=== PATIENT | male | born 2000 | race Hispanic/Latino ===

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

== ENCOUNTER 2022-10-12 09:37 | Emergency (ER) | payer MEDICAID ==
[~2022-10-12] VITALS: Ht 165.1 cm; Wt 56.7 kg
[2022-10-12] MEDS ORDERED: NAPR-1180 PO (11:28)
[2022-10-12 12:11] VITALS: BP 132/68
== END 2022-10-12 12:12 | disposition home or self-care (01) ==
LOC: EDH 09:37
DX: S39.012A Strain of muscle, fascia and tendon of lower back, initial encounter (principal); X58.XXXA Exposure to other specified factors, initial encounter; Y93.89 Activity, other specified; Y92.89 Other specified places as the place of occurrence of the external cause; Y99.8 Other external cause status
CPT/HCPCS: 99282

== ENCOUNTER 2023-01-26 20:09 | Emergency (ER) | payer MEDICAID ==
[~2023-01-26] VITALS: Ht 165.1 cm; Wt 55.3 kg
[~2023-01-26 20:09] MED LIST: FLUC150T PO; LEVO750T68 PO; NAPR-1180 PO
[2023-01-27 03:06] LABS: BASOPHILS # (AUTO) 0.05 K/uL (0.00-0.20); BASOPHILS % (AUTO) 0.8 % (0.0-5.0); EOSINOPHILS # (AUTO) 0.11 K/uL (0.00-0.70); EOSINOPHILS % (AUTO) 1.8 % (0.0-8.0); HEMATOCRIT 46.9 % (42-54); IMMATURE GRANULOCYTE ABSOLUTE 0.04 K/uL (0-1); LYMPHOCYTES # (AUTO) 2.1 K/uL (1.0-4.8); LYMPHOCYTES % (AUTO) 35.1 % (21.0-51.0); MEAN CORPUSCULAR HEMOGLOBIN 28.6 pg (27.0-33.0); MEAN CORPUSCULAR HGB CONC 33.7 g/dL (32.0-36.0); MONOCYTES # (AUTO) 0.5 K/uL (0.1-1.0); MONOCYTES % (AUTO) 8.2 % (3.0-13.0); NEUTROPHILS # (AUTO) 3.2 K/uL (1.8-7.7); NEUTROPHILS % (AUTO) 53.4 % (40.0-77.0); PLATELET COUNT (AUTO) 298 K/uL (130-400); RED BLOOD CELL COUNT(AUTO) 5.52 MIL/uL (4.50-6.20); RED CELL DISTRIBUTION WIDTH 12.6 % (11.0-15.5)
[2023-01-27 03:18] LABS: APPEARANCE,URINE CLEAR (CLEAR); BILIRUBIN,URINE NEGATIVE (NEGATIVE); COLOR,URINE YELLOW (YELLOW); GLUCOSE, URINE (UA) NEGATIVE (NEGATIVE); KETONES,URINE 40 mg/dL (NEGATIVE); LEUKOCYTE ESTERASE ,URINE NEGATIVE Leu/uL (NEGATIVE); NITRATE,URINE NEGATIVE (NEGATIVE); OCCULT BLOOD,URINE NEGATIVE (NEGATIVE); PROTEIN,URINE 20 mg/dL (NEGATIVE); UROBILINOGEN,URINE 0.2 mg/dL (0.2-1.0)
[2023-01-27 03:21] LABS: ALBUMIN 4.4 g/dL (3.5-5.0); BILIRUBIN,TOTAL 0.7 mg/dL (0.2-1.0); CREATININE 0.9 mg/dL (0.5-1.5); TOTAL PROTEIN, SERUM 7.9 g/dL (6.0-8.3)
[2023-01-27 03:21] LABS: ADD UA MICROSCOPIC YES; MUCUS,URINE FEW LPF (None Seen); WBC,URINE 0-1 /HPF (0-1)
[2023-01-27 03:24] LABS: AMPHET/METH SCREEN,URINE NEGATIVE (NEGATIVE); BARBITURATE SCREEN, URINE NEGATIVE (NEGATIVE); BENZODIAZEPINES SCREEN,URINE NEGATIVE (NEGATIVE); CANNABINOID SCREEN,URINE POSITIVE (NEGATIVE); COCAINE SCREEN,URINE NEGATIVE (NEGATIVE); OPIATE SCREEN,URINE NEGATIVE (NEGATIVE); PHENCYCLIDINE SCREEN,URINE NEGATIVE (NEGATIVE)
[2023-01-27] MEDS ORDERED: DICYCLOMINE HCL 10 MG/5 ML ML PO ONE (03:30)
[2023-01-27] MEDS ORDERED: LIDOCAINE HCL 2% VISCOUS 15 ML UDCUP PO ONE (03:30)
[2023-01-27] MEDS ORDERED: MAG/ALUM/SIMETH 30 ML UDCUP PO ONE (03:30)
[2023-01-27 06:14] VITALS: BP 116/70; PULSE 72; RESP 18; O2SAT 99
== END 2023-01-27 06:15 | disposition home or self-care (01) ==
LOC: EDH 20:09
DX: K29.70 Gastritis, unspecified, without bleeding (principal); R11.2 Nausea with vomiting, unspecified; F12.10 Cannabis abuse, uncomplicated; J45.909 Unspecified asthma, uncomplicated; Z79.899 Other long term (current) drug therapy
CPT/HCPCS: 36415; 80053; 80305; 81001; 83690; 85025

== ENCOUNTER 2023-03-10 14:17 | Emergency (ER) | payer MEDICAID ==
[~2023-03-10] VITALS: Ht 165.1 cm; Wt 58.1 kg
[2023-03-10 15:44] LABS: RAPID GROUP A STREP negative (NEGATIVE)
[2023-03-10 15:56] LABS: INFLUENZA TYPE A Negative For Type A (NEGATIVE); INFLUENZA TYPE B Negative For Type B (NEGATIVE); SARS-CoV-2, RNA, NAAT NEGATIVE SARS CoV-2 (NEGATIVE)
[2023-03-10] MEDS ORDERED: IBUP-2070 PO (16:27)
[2023-03-10] MEDS ORDERED: PRED20TA3 PO (16:27)
[2023-03-10] MEDS ORDERED: PREDNISONE 20 MG TABLET PO ONE (16:30)
[2023-03-10 16:41] VITALS: BP 131/68; PULSE 78; RESP 16; O2SAT 100
== END 2023-03-10 16:52 | disposition home or self-care (01) ==
LOC: EDH 14:17
DX: J06.9 Acute upper respiratory infection, unspecified (principal); J45.909 Unspecified asthma, uncomplicated; Z20.822 Contact with and (suspected) exposure to COVID-19
CPT/HCPCS: 99283; 87635; 87880; 87804 ×2; C9803

== ENCOUNTER 2023-04-02 17:24 | Emergency (ER) | payer MEDICAID ==
[~2023-04-02] VITALS: Ht 165.1 cm; Wt 59.0 kg
[~2023-04-02 17:24] MED LIST changes: +IBUP-2070 PO; +PRED20TA3 PO
[2023-04-02 18:30] LABS: RAPID GROUP A STREP negative (NEGATIVE)
[2023-04-02 18:34] LABS: INFLUENZA TYPE A Negative For Type A (NEGATIVE); INFLUENZA TYPE B Negative For Type B (NEGATIVE)
[2023-04-02 18:47] LABS: SARS-CoV-2, RNA, NAAT NEGATIVE SARS CoV-2 (NEGATIVE)
[2023-04-02 18:51] VITALS: BP 116/80; PULSE 99; RESP 18; O2SAT 99
[2023-04-02] MEDS ORDERED: BROM118S48 PO (19:26)
[2023-04-02] MEDS ORDERED: BENZ200C53 PO (19:26)
== END 2023-04-02 19:45 | disposition home or self-care (01) ==
LOC: EDH 17:24
DX: J00 Acute nasopharyngitis [common cold] (principal); Z79.52 Long term (current) use of systemic steroids; Z20.822 Contact with and (suspected) exposure to COVID-19
CPT/HCPCS: 99283; 87635; 87880; 87804 ×2; C9803

== ENCOUNTER 2024-05-13 12:46 | Emergency (ER) | payer SELFPAY ==
[~2024-05-13] VITALS: Ht 165.1 cm; Wt 61.2 kg
[~2024-05-13 12:46] MED LIST changes: +BENZ200C53 PO; +BROM118S48 PO
[2024-05-13 13:26] LABS: APPEARANCE,URINE CLOUDY (CLEAR); BILIRUBIN,URINE NEGATIVE (NEGATIVE); COLOR,URINE LIGHT-YELLOW (YELLOW); GLUCOSE, URINE (UA) NEGATIVE (NEGATIVE); KETONES,URINE NEGATIVE (NEGATIVE); LEUKOCYTE ESTERASE ,URINE 500 Leu/uL (NEGATIVE); NITRATE,URINE NEGATIVE (NEGATIVE); OCCULT BLOOD,URINE SMALL (NEGATIVE); PH,URINE 6.5 (5.0-8.0); PROTEIN,URINE NEGATIVE (NEGATIVE); UROBILINOGEN,URINE 0.2 mg/dL (0.2-1.0)
[2024-05-13] MEDS ORDERED: cefTRIAXone 1G VIAL IM ONE (13:30)
[2024-05-13 13:34] LABS: ADD UA MICROSCOPIC YES
[2024-05-13] MEDS ORDERED: DOXY100C61 PO (13:39)
--- NOTE | 2024-05-13 13:42 | ERN ---
General Chief Complaint: Painful Urination Stated Complaint: CHECK UP Time Seen by MD: 12:50 Time Seen by Midlevel: 12:50 Source: patient History of Present Illness Initial Comments Patient is a 23-year-old male presenting to the emergency department for evaluation following a possible exposure to STD. Patient reports being sexually active. For the last two days he developed dysuria along with penile discharge. He does have a history of chlamydia/gonorrhea and is concerned that the infection may have "come back". Denies any other symptoms at this time. He specifically denies any fever, chills, nausea, vomiting, testicular pain/swelling, or any other symptoms at this time. Allergies: Coded Allergies: No Known Allergies (Unverified Allergy, Unknown, 11/05/18) Home Meds Active Scripts D-Methorphan Hb/P-Epd HCl/Bpm (Bromfed Dm Cough Syrup) 2 Mg-30 Mg-10 Mg/5 Ml Syrup, 10 ML PO Q4HPRN PRN for COUGH for 10 Days, #100 ML Prov:DALIA JACOBSON [facility] 04/02/23 Benzonatate (Benzonatate) 200 Mg Capsule, 200 MG PO TID PRN for COUGH for 14 Days, #42 CAP Prov:DALIA JACOBSON [facility] 04/02/23 Ibuprofen (Ibuprofen) 600 Mg Tablet, 600 MG PO Q6H PRN for PAIN, #30 TAB Prov:SHARRI CONNELL [facility] 03/10/23 Prednisone (Prednisone) 20 Mg Tablet, 2 TAB PO DAILY for 5 Days, #10 TAB 0 Refills Prov:SHARRI CONNELL [facility] 03/10/23 Fluconazole (Diflucan) 150 Mg Tablet, 150 MG PO Q72H, #3 TAB Prov:SHARRI CONNELL [facility] 12/09/22 Levofloxacin (Levaquin 750Mg Tabs) 750 Mg Tablet, 750 MG PO DAILY for 7 Days, #7 TAB Prov:SHARRI CONNELL [facility] 12/09/22 Naproxen (Naprosyn) 500 Mg Tablet, 500 MG PO BIDPC for 10 Days, #20 TAB 0 Refills Prov:KISHA PAPPAS [facility] 10/12/22 Past Medical History Past Medical History: No Pertinent History, Asthma Past Surgical History: None Family History Family History: Negative Social History Social History: Negative, Lives with family ROS Dictation CONSTITUTIONAL: Negative except for HPI HEAD/FACE: Negative except for HPI EENT: Negative except for HPI RESPIRATORY: Negative except for HPI GASTROINTESTINAL/ABDOMINAL: Negative except for HPI GENITOURINARY: Negative except for HPI MUSCULOSKELETAL: Negative except for HPI INTEGUMENTARY: Negative except for HPI NEUROLOGICAL/PSYCH: Negative except for HPI HEMATOLOGIC/LYMPHATIC: Negative except for HPI All Systems Negative, Except as noted above. 13 point review of systems assessed and all negative except for above. Physical Exam Physical Exam Dictation Vital Signs reviewed General Appearance: Alert, oriented x 3, no acute distress, well developed, nourished. Head and Face: non-traumatic. Eyes: PERRL, pink conjunctivas, eyelid no trauma, anterior chamber with arcus senilis. Ears: Pinnas intact and no signs of trauma or erythema ear canals clear and no discharge TM no erythema Nose: No discharge, no bleeding. Oropharynx: Mouth normal, tongue pink, pharynx clear,no erythema, tonsils no exudates, no abscesses noted, mucous membrane moist Neck: Supple, non-tender, no thyromegaly, no masses, no JVD, no bruits Breast:Deferred Chest:No tenderness, no crepitus, no paradoxical movement, no retractions Lungs:Clear, well-ventilated, symmetric, no rales, no wheezing, no rhonchi, no stridor, good breath sounds bilaterally Heart: Regular rate, regular rhythm, no murmur, no gallops Vascular: no peripheral edema, Abdomen: Soft, positive bowel sounds, nondistended, no guarding, nontender, no rebound, no masses no hepatomegaly, no splenomegaly, no Bonilla's sign, no hernias. Rectal: Deferred Genital: Deferred Neurological: Normal speech, motor function intact, sensory function intact Musculoskeletal: Neck nontender, full range of motion, back nontender, full range of motion, Extremities: nontender, full range of motion Skin: Color pink, dry, no turgor, no rash, no lacerations, no abrasions, no contusions. Lymphatic: Deferred Results Laboratory and Microbiology Lab and Micro Result Laboratory Tests Test 05/13/24 13:17 Urine Color LIGHT-YELLOW (YELLOW) Urine Appearance CLOUDY (CLEAR) H Urine pH 6.5 (5.0-8.0) Urine Specific [place] 1.019 (1.001-1.031) Urine Protein NEGATIVE mg/dL (NEGATIVE) Urine Glucose (UA) NEGATIVE mg/dL (NEGATIVE) Urine Ketones NEGATIVE mg/dL (NEGATIVE) Urine Occult Blood SMALL (NEGATIVE) H Urine Nitrate NEGATIVE (NEGATIVE) Urine Bilirubin NEGATIVE mg/dL (NEGATIVE) Urine Urobilinogen 0.2 mg/dL (0.2-1.0) Urine Leukocyte Esterase 500 Eliu/uL (NEGATIVE) H Labs Reviewed?: Yes MDM MDM: Patient is a 23-year-old male presenting to the emergency department for evaluation following a possible exposure to STD. Patient reports being sexually active. For the last two days he developed dysuria along with penile discharge. He does have a history of chlamydia/gonorrhea and is concerned that the infection may have "come back". Denies any other symptoms at this time. He specifically denies any fever, chills, nausea, vomiting, testicular pain/swelling, or any other symptoms at this time. On physical examination patient is in no acute distress. Vital signs are stable and patient is nontoxic appearing. Genitourinary exam was deferred per patient request. Urinalysis was obtained which does show evidence of infection. Given patient's concern for sexually transmitted disease a GC chlamydia sample was obtained and sent to the lab. Patient will be treated prophylactically with ceftriaxone1 g IM. He will be discharged home with a prescription for doxycycline. He was advised to refrain from any sexual contact until he finishes antibiotics and gets a repeat STD testing. Patient agrees and all questions have been answered. Differential diagnosis: Urinary tract infection, sexually transmitted disease, epididymitis There are no social concerns with this patient. Prescription drug management Prescriptions will include: Doxycycline Medical management and examination interpretation discussions were had by me with other qualified healthcare professionals as indicated for the patient's care. ED Course Orders Procedure Category Date Status Time Urinalysis Profile LAB 05/13/24 In Process 13:07 Ceftriaxone 1g Vial PHA 05/13/24 Complete (Rocephine 1g Inj) 13:30 Chlamydia & Gc Pcr SPIKE 05/13/24 In Process 13:07 Ceftriaxone 1g Vial PHA 05/13/24 Complete (Rocephine 1g Inj) 13:30 Culture Urine SPIKE 05/13/24 Logged 13:34 Current Medications Medications (Trade) Dose Ordered Sig/Dorota Route PRN Reason Start Time Stop Time Status Last Admin Dose Admin Ceftriaxone Sodium (ROCEphine 1G INJ) 1 gm ONCE ONCE IM 05/13/24 13:30 05/13/24 13:11 DC Ceftriaxone Sodium (ROCEphine 1G INJ) 1 gm ONCE ONCE IM 05/13/24 13:30 05/13/24 13:31 DC Vital Signs Date Time Temp Pulse Resp B/P (MAP) Pulse Ox O2 Delivery O2 Flow Rate FiO2 05/13/24 12:55 98.4 88 16 140/68 100 Room Air 0 DX & DISP Disposition: Discharge Departure Impression: Primary Impression: Possible exposure to STD Additional Impressions: Dysuria, Penile discharge Condition: Stable Scripts Doxycycline Monohydrate (Doxycycline Monohydrate) 100 Mg Capsule 1 CAP PO BID for 10 Days, #20 CAP 0 Refills Prov: AIXA ABEL 05/13/24 Additional Instructions: Your urinalysis shows evidence of infection. You were treated empirically for chlamydia and gonorrhea today. I have given you a prescription for doxycycline. Please make sure you take your antibiotics as prescribed. Refrain from any sexual intercourse until you are finished her antibiotics and have seen a primary care doctor for repeat STD testing. Return to the ER for develop any new or worsening symptoms. Referrals: KALEB JURADO MD (PCP) Time of Disposition: 13:38 I have reviewed the case, and I agree with, Diagnosis and Plan I performed the substantive portion of the visit. I have reviewed and personally made and approve the management plan that is documented in the note by myself or the AMISH. I acknowledge for responsibility for the patient's management plan. AIXA ABEL May 13, 2024 13:42
[2024-05-13 13:44] VITALS: BP 131/63; PULSE 85; RESP 16; TEMP 98.4; O2SAT 100
[2024-05-13] MEDS: cefTRIAXone 1G VIAL IM ONE (13:44)
[2024-05-13 13:51] LABS: BACTERIA,URINE RARE /HPF (None Seen); UNCLASSIFIED CRYSTAL 11 /HPF (None Seen); WBC,URINE TNTC /HPF (0-1); YEAST,URINE BUDDING RARE /HPF (None Seen)
== END 2024-05-13 13:58 | disposition home or self-care (01) ==
LOC: EDH 12:46
DX: R30.0 Dysuria (principal); R36.9 Urethral discharge, unspecified; J45.909 Unspecified asthma, uncomplicated; Z20.2 Contact with and (suspected) exposure to infections with a predominantly sexual mode of transmission; Z79.52 Long term (current) use of systemic steroids; Z79.899 Other long term (current) drug therapy
CPT/HCPCS: 99283; 87086; 87491; 87591; 81001; 96372; J0696

== ENCOUNTER 2025-03-10 17:19 | Emergency (ER) | payer SELFPAY ==
[~2025-03-10] VITALS: Ht 162.6 cm; Wt 61.2 kg
[~2025-03-10 17:19] MED LIST changes: +DOXY-466 PO; +IBUP-1492 PO; -IBUP-2070 PO
--- NOTE | 2025-03-10 17:25 | ERN ---
ED Note History of Present Illness Stated Complaint: PAIN WITH URINATION Chief Complaint: Painful Urination Time Seen by MD: 17:22 Dictation: IS A 24-YEAR-OLD MALE COMING IN TODAY WITH PAINFUL URINATION BURNING ONSET THIS MORNING. NO FEVER NO CHILLS NO NAUSEA VOMITING NO FLANK PAIN.. STI Allergies: Coded Allergies: No Known Allergies (Unverified Allergy, Unknown, 11/05/18) Home Meds Active Scripts Doxycycline Monohydrate (Doxycycline Monohydrate) 100 Mg Capsule, 1 CAP PO BID for 10 Days, #20 CAP 0 Refills Prov:AIXA ABEL PAC 05/13/24 D-Methorphan Hb/P-Epd HCl/Bpm (Bromfed Dm Cough Syrup) 2 Mg-30 Mg-10 Mg/5 Ml Syrup, 10 ML PO Q4HPRN PRN for COUGH for 10 Days, #100 ML Prov:DALIA JACOBSON [facility] 04/02/23 Benzonatate (Benzonatate) 200 Mg Capsule, 200 MG PO TID PRN for COUGH for 14 Days, #42 CAP Prov:DALIA JACOBSON [facility] 04/02/23 Ibuprofen (Ibuprofen) 600 Mg Tablet, 600 MG PO Q6H PRN for PAIN, #30 TAB Prov:SHARRI CONNELL [facility] 03/10/23 Prednisone (Prednisone) 20 Mg Tablet, 2 TAB PO DAILY for 5 Days, #10 TAB 0 Refills Prov:SHARRI CONNELL [facility] 03/10/23 Fluconazole (Diflucan) 150 Mg Tablet, 150 MG PO Q72H, #3 TAB Prov:SHARRI CONNELL [facility] 12/09/22 Levofloxacin (Levaquin 750Mg Tabs) 750 Mg Tablet, 750 MG PO DAILY for 7 Days, #7 TAB Prov:SHARRI CONNELL [facility] 12/09/22 Naproxen (Naprosyn) 500 Mg Tablet, 500 MG PO BIDPC for 10 Days, #20 TAB 0 Refills Prov:KISHA PAPPAS [facility] 10/12/22 Past Medical History Past Medical History: No Pertinent History, Asthma Surgical History: None Family History: Negative Social History: Negative, Lives with family RN Note Reviewed/Agreed w/PFSH: Yes Review of System Dictation CONSTITUTIONAL: NEGATIVE EXCEPT FOR HPI HEAD/FACE: NEGATIVE EXCEPT FOR HPI EENT: NEGATIVE EXCEPT FOR HPI RESPIRATORY: NEGATIVE EXCEPT FOR HPI GASTROINTESTINAL/ABDOMINAL: NEGATIVE EXCEPT FOR HPI GENITOURINARY: NEGATIVE EXCEPT FOR HPI DYSURIA MUSCULOSKELETAL: NEGATIVE EXCEPT FOR HPI INTEGUMENTARY: NEGATIVE EXCEPT FOR HPI NEUROLOGICAL/PSYCH: NEGATIVE EXCEPT FOR HPI HEMATOLOGIC/LYMPHATIC: NEGATIVE EXCEPT FOR HPI ALL SYSTEMS NEGATIVE, EXCEPT NOTED ABOVE. 13 POINT REVIEW OF SYSTEMS ASSESSED AND ALL NEGATIVE EXCEPT FOR ABOVE. Initial Vital Sign VS Vital Signs Date Time Temp Pulse Resp B/P (MAP) Pulse Ox O2 Delivery O2 Flow Rate FiO2 03/10/25 17:21 98.2 72 20 116/81 98 Room Air 0 Physical Exam Dictation VITAL SIGNS REVIEWED GENERAL APPEARANCE: ALERT, ORIENTED X 3, MILD ACUTE DISTRESS, WELL DEVELOPED, NOURISHED. HEAD AND FACE: NON-TRAUMATIC. EYES: PERRL, PINK CONJUNCTIVAS, EYELID NO TRAUMA, ANTERIOR CHAMBER WITH ARCUS SENILIS. EARS: PINNAS INTACT AND NO SIGNS OF TRAUMA OR ERYTHEMA EAR CANALS CLEAR AND NO DISCHARGE TM NO ERYTHEMA NOSE: NO DISCHARGE, NO BLEEDING. OROPHARYNX: MOUTH NORMAL, TONGUE PINK, PHARYNX CLEAR,NO ERYTHEMA, TONSILS NO EXUDATES, NO ABSCESSES NOTED, MUCOUS MEMBRANE MOIST NECK: SUPPLE, NON-TENDER, NO THYROMEGALY, NO MASSES, NO JVD, NO BRUITS BREAST:DEFERRED CHEST:NO TENDERNESS, NO CREPITUS, NO PARADOXICAL MOVEMENT, NO RETRACTIONS LUNGS:CLEAR, WELL-VENTILATED, SYMMETRIC, NO RALES, NO WHEEZING, NO RHONCHI, NO STRIDOR, GOOD BREATH SOUNDS BILATERALLY HEART: REGULAR RATE, REGULAR RHYTHM, NO MURMUR, NO GALLOPS VASCULAR: NO PERIPHERAL EDEMA, ABDOMEN: SOFT, POSITIVE BOWEL SOUNDS, NONDISTENDED, NO GUARDING, NONTENDER, NO REBOUND, NO MASSES NO HEPATOMEGALY, NO SPLENOMEGALY, NO GRAMAJO'S SIGN, NO HERNIAS. RECTAL: DEFERRED GENITAL: DEFERRED NEUROLOGICAL: NORMAL SPEECH, MOTOR FUNCTION INTACT, SENSORY FUNCTION INTACT MUSCULOSKELETAL: NECK NONTENDER, FULL RANGE OF MOTION, BACK NONTENDER, FULL RANGE OF MOTION, EXTREMITIES: NONTENDER, FULL RANGE OF MOTION SKIN: COLOR PINK, DRY, NO TURGOR, NO RASH, NO LACERATIONS, NO ABRASIONS, NO CONTUSIONS. LYMPHATIC: DEFERRED Results (Laboratory/Radiology) Laboratory/Radiology Laboratory Tests Test 03/10/25 18:30 Urine Color YELLOW (YELLOW) Urine Appearance CLEAR (CLEAR) Urine pH 5.5 (5.0-8.0) Urine Specific [place] 1.029 (1.001-1.031) Urine Protein NEGATIVE mg/dL (NEGATIVE) Urine Glucose (UA) NEGATIVE mg/dL (NEGATIVE) Urine Ketones 20 mg/dL (NEGATIVE) H Urine Occult Blood +- (TRACE) (NEGATIVE) H Urine Nitrate NEGATIVE (NEGATIVE) Urine Bilirubin NEGATIVE mg/dL (NEGATIVE) Urine Urobilinogen 0.2 mg/dL (0.2-1.0) Urine Leukocyte Esterase 500 Eliu/uL (NEGATIVE) H Urine RBC 11-25 /HPF (0-1) H Urine WBC 26-50 /HPF (0-1) H Urine Bacteria RARE /HPF (None Seen) Labs Reviewed?: Yes ED Course ED Course Orders Procedure Category Date Status Time Urinalysis Profile LAB 03/10/25 Complete 17:23 Culture Urine SPIKE 03/10/25 In Process 19:06 Vital Signs Date Time Temp Pulse Resp B/P (MAP) Pulse Ox O2 Delivery O2 Flow Rate FiO2 03/10/25 17:21 98.2 72 20 116/81 98 Room Air 0 1925/SPOKE WITH PATIENT AT LENGTH AND HE SAID HE HAS HAD GONORRHEA AND CHLAMYDIA MULTIPLE TIMES IN THE PAST. STATES HE HAS BEEN SEXUALLY ACTIVE RECENTLY WHEN HE STARTED HAVING THE DYSURIA. I WE WILL TREAT PATIENT EMPIRICALLY FOR POSSIBLE STI EXPOSURE HE WAS EXPLAINED TO HAVE NO SEX OF ANY KIND UNTIL CLEARED BY PLANNED [facility] ON THURSDAY. Medical Decision Making MDM MEDICAL DECISION-MAKING BASED ON URINALYSIS FOR UTI PATIENT HAS A LEUKOCYTOSIS AND WE WILL BE TREATED FOR POSSIBLE STI EXPOSURE WITH DOXYCYCLINE AND AZITHROMYCIN REFERRED TO [facility] ON THURSDAY ALSO INSTRUCTED NO SEX OF ANY KIND UNTIL CLEARED BY PLANNED PARENTS DX & DISP Disposition: Discharge Departure Impression: Primary Impression: Acute UTI Additional Impression: Possible exposure to STD Condition: Stable Scripts Azithromycin (Zithromax Tri-Tarun) 500 Mg Tablet 500 MG PO ONCE for 1 Day, #2 TAB TWO TABLETS BY MOUTH X1 DOSE Prov: ANTONINO BROWNING 03/10/25 Doxycycline Hyclate (Doxycycline Hyclate) 100 Mg Tablet 1 TAB PO BID for 10 Days, #20 TAB 0 Refills Prov: ANTONINO BROWNING 03/10/25 Additional Instructions: FOLLOW-UP WITH PRIMARY CARE PROVIDER IN 1 TO 2 DAYS. TAKE MEDICATIONS DIRECTED HERE IN THE EMERGENCY ROOM. OKAY TO CONTINUE HOME MEDICATIONS UNLESS OTHERWISE DISCUSSED DURING YOUR VISIT IN THE EMERGENCY ROOM TODAY. RETURN TO YOUR NEAREST EMERGENCY ROOM IF SYMPTOMS WORSEN OR IF THERE IS NO IMPROVEMENT. CALL 911 IF YOU NEED IMMEDIATE ASSISTANCE. TAKE TYLENOL OR MOTRIN O [id number] NEEDED AND IF NO CONTRAINDICATIONS ARE PRESENT. INCREASE ORAL HYDRATION. A WOUND CULTURE OR URINE CULTURE WAS ORDERED HERE IN THE EMERGENCY ROOM DEPARTMENT PLEASE FOLLOW-UP WITH PRIMARY CARE PROVIDER AND ADVISE THEM TO GET REPEAT PORTS FROM OUR FACILITY. IF YOU HAD ANY RED WRAP/SPLINTS THAT WERE APPLIED HERE, PLEASE DO NOT REMOVE THEM UNTIL YOU SEE YOUR PRIMARY CARE OR SPECIALTY. NO SEX OF ANY KIND UNTIL CLEARED BY PLANNED PARENT[facility]OD ON THURSDAY. SEE THE INTERNET FOR THE NUMBER OF PLANNED PARENT[facility]OD IN [facility]. TAKE AZITHROMYCIN DIRECTED X1 DOSE UNTIL GONE. TAKE DOXYCYCLINE DIRECTED TWICE A DAY FOR THE NEXT 10 DAYS. Referrals: KALEB JURADO MD (PCP) Time of Disposition: 19:29 I have reviewed the case, and I agree with, Diagnosis and Plan ANTONINO BROWNING [employer]IPPER OPERATOR Mar 10, 2025 17:25
--- NOTE | 2025-03-10 18:37 | NUR ---
PER PT, HE HAS HAD SEVERAL OCCASIONS OF GHONORRHEA. HE HAS A LOT OF UNPROTECTED SEX WITH MULTIPLE PARTNERS
[2025-03-10 19:05] LABS: APPEARANCE,URINE CLEAR (CLEAR); GLUCOSE, URINE (UA) NEGATIVE (NEGATIVE); LEUKOCYTE ESTERASE ,URINE 500 Leu/uL (NEGATIVE); NITRATE,URINE NEGATIVE (NEGATIVE); OCCULT BLOOD,URINE +- (TRACE) (NEGATIVE)
[2025-03-10 19:06] LABS: ADD UA MICROSCOPIC YES
[2025-03-10] MEDS ORDERED: AZIT500T2 PO (19:30)
[2025-03-10] MEDS ORDERED: DOXY100T2 PO (19:30)
[2025-03-10 19:46] VITALS: BP 122/76; PULSE 72; RESP 16; TEMP 98.3; O2SAT 100
== END 2025-03-10 19:46 | disposition home or self-care (01) ==
LOC: EDH 17:19
DX: N39.0 Urinary tract infection, site not specified (principal); Z20.2 Contact with and (suspected) exposure to infections with a predominantly sexual mode of transmission; Z79.52 Long term (current) use of systemic steroids
CPT/HCPCS: 81001; 87086; 99283